=== PATIENT | male | born 2000 | race Caucasian/White ===

== ENCOUNTER 2020-07-07 19:11 | Emergency (ER) | payer OTHER ==
[~2020-07-07] VITALS: Ht 170.2 cm; Wt 68.0 kg
== END 2020-07-08 00:16 | disposition home or self-care (01) ==
LOC: EMR PED 19:11 → ER 19:44 → EMR PED 19:44
DX: R10.31 Right lower quadrant pain (principal); Z03.818 Encounter for observation for suspected exposure to other biological agents ruled out